=== PATIENT | female | born 2000 | race Caucasian/White ===

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

== ENCOUNTER 2020-07-05 13:24 | Observation (INO) | payer OTHER ==
[~2020-07-05] VITALS: Ht 160 cm; Wt 64.5 kg
[~2020-07-05 13:24] MED LIST changes: +BACTRIM DS TAB1 EACH PO; +CEPHALEXIN500 MG PO; +TRAMADOL HCL50 MG PO
--- NOTE | 2020-07-05 21:10 | CONS ---
[facility] [address] [place], [place] [address] Signed DATE OF CONSULTATION: 07/05/2020 CHIEF COMPLAINT: Right lower quadrant abdominal pain. HISTORY OF PRESENT ILLNESS: Pretty is a 20-year-old female, otherwise healthy, who ate a smoothie this morning and then had nausea, vomiting twice. She was experiencing some pain in the right lower quadrant. She had called her grandmother and came to emergency room for evaluation. In the emergency room, she was tender in the right lower quadrant with a white count at 10.1. Beta-hCG is negative. COVID test is almost completed. In the meantime, she did receive a CT scan of abdomen and pelvis and she has a fluid-filled mildly thickened appendix consistent with her appendicitis. Therefore, I was asked to see her general surgeon on-call. In the meantime, she received some IV fluids along with her Rocephin and Flagyl. PAST MEDICAL HISTORY: Headaches. PAST SURGICAL HISTORY: None. SOCIAL HISTORY: Marijuana, but does not smoke otherwise. Alcohol none. Lives with a boyfriend. No children. She drives. She is a ware server at a local restaurant. She prefers the [facility]. She goes to the [facility] for primary care. Her mother is at [phone]. FAMILY HISTORY: Her dad had asthma and there is diabetes on both sides of the family. REVIEW OF SYSTEMS: She had 10 systems reviewed. She told me that she had some bunch of Tylenol when she was younger and she thought it irritated her stomach, but in the meantime, she has had Tylenol seems to do fine. ALLERGIES: Tylenol with stomach irritation. MEDICATIONS: None. PHYSICAL EXAMINATION: Electronically Signed By: LEVI KAY MD 07/05/202109 PATIENT NAME: PRETTY HANKINS CONSULTATION DATE OF : [birth year] REPORT #: [id number] PHYSICIAN: LEVI KAY MD PCP: ISIDORO BUITRAGO MD REPORT IS CONFIDENTIAL AND NOT TO BE RELEASED WITHOUT AUTHORIZATION [facility] [address] [place], [place] [address] Signed VITAL SIGNS: Blood pressure 122/87, heart rate 74, respiratory rate 17, temperature is 97.5. She is 100% on room air. She is 5 feet 3 inches, 72 kg. GENERAL: Pretty is a 20-year-old female appears healthy and at her stated age. Her grandmother is with her currently. She does not appear systemically ill or toxic. LUNGS: Clear to auscultation bilaterally. HEART: Regular rate and rhythm. ABDOMEN: Soft, flat, but she is tender at McBurney's point in the right lower quadrant. LABORATORY DATA: Her white blood count 10.1, hemoglobin 13, neutrophils 72. Electrolytes are unremarkable. LFTs negative. Albumin 4.8. Beta-hCG negative urinalysis negative: COVID pending. RADIOGRAPHIC STUDIES: CT scan of abdomen and pelvis is reviewed both the images and the report and she does have a mildly thickened appendix with fluid concerning obviously for appendicitis. ASSESSMENT AND PLAN: Pretty is a 20-year-old female who presents with early acute appendicitis. I reviewed with Pretty and her grandmother the location of function of the appendix. We have discussed laparoscopic versus open appendectomy. We reviewed the expected intraop and postop course. She does understand the risks including, but not limited to bleeding, infection, scarring, change in contour of the skin, damage to bowel, appendiceal stump leak, postoperative intraabdominal abscess, incisional hernias and other unforeseen comorbidities. She has expressed understanding and would like to proceed with surgery. Levi Kay MD ALB/MODL /[id number] cc: [facility] Levi Kay MD Patient chart Electronically Signed By: LEVI KAY MD 07/05/202109 PATIENT NAME: PRETTY HANKINS CONSULTATION DATE OF : [birth year] REPORT #: [id number] PHYSICIAN: LEVI KAY MD PCP: ISIDORO BUITRAGO MD REPORT IS CONFIDENTIAL AND NOT TO BE RELEASED WITHOUT AUTHORIZATION [facility] [address] [place] [address] Signed Copies: LEVI KAY MD ~ Electronically Signed By: LEVI KAY MD 07/05/202109 PATIENT NAME: PRETTY HANKINS CONSULTATION DATE OF : [birth year] REPORT #: [id number] PHYSICIAN: LEVI KAY MD PCP: ISIDORO BUITRAGO MD REPORT IS CONFIDENTIAL AND NOT TO BE RELEASED WITHOUT AUTHORIZATION
--- NOTE | 2020-07-05 21:11 | NUR ---
07/05/202110 Makenzie Lang PATIENT CONTINUES TO TRY TO REMOVE HER OXYGEN MASK. OXYGEN IS TURNED OFF AND OXYGEN MASK IS REMOVED. ICE PLACED ON ABDOMEN.
--- NOTE | 2020-07-05 21:45 | NUR ---
PT ARRIVES TO FLOOR VIA STRETCHER WITH YOUTH PROBATION OFFICER. PT ABLE TO SCOOT HERSELF OVER TO THE BED SLOWLY. RATES PAIN 10/10. DENIES NASUEA. REPORTS THAT HER THROAT IS SCRATCHY, REQUESTS WATER. ENCOURAGED PT TO TAKE SLOW SIPS OF WATER, TO NOT OVER DO IT. PT TAKING LARGE DRINKS OF WATER. PT'S GRANDMA AT BEDSIDE ATTEMPTING TO TALK TO PT. PT DROWSY. ADMISSION PROCESS COMPLETED. PT ORIENTED TO ROOM AND POC. PT STATES UNDERSTANDING. PT PROVIDED WITH WARM BLANKETS, PT SHIVERING AND COLD. PT DENIES FURTHER NEEDS AT THIS TIME. CALL LIGHT IN REACH. PT AGREES TO USE FOR NEEDS.
--- NOTE | 2020-07-05 22:30 | NUR ---
ASSESSMENT COMPLETE. IVF INFUSING PER ORDER. PRN ADMINISTERED FOR 10/10 ABD PAIN. LAP SITES X 3 COVERED WITH GAUZE. SCANT AMOUNT OF SHADOWING NOTED. BOWEL TONES HYPOACTIVE. PT DENIES NAUSEA. FRESH ICE TO ABD. CPOX AND SCD'S IN PLACE. PT DROWSY BUT RESPONDS APPROPRIATELY TO QUESTIONS. CLEAR LIQUIDS PROVIDED. PT ORIENTED TO ROOM AND NURSE CALL LIGHT. NO QUESTIONS OR CONCERNS AT THIS TIME. CALL LIGHT IN REACH.
--- NOTE | 2020-07-05 22:45 | NUR ---
POST OP VITALS OBTAINED. PT REQUESTS TO GET UP AND USE THE BATHROOM. PT EDUCATION PROVIDED REGARDING SPLITING, TRANSFERS AFTER ABD SURGERY. PT DEMOSTRATES KNOWLEDGE. PT BACK TO BED WITH 1 PA. UNSTEADY ON HER FEET. REMINDED PT TO ALWAYS CALL FOR ASSISTANCE, NOT TO GET OUT OF BED WITHOUT HELP. BED ALARM PLACED. WARM BLANKET PROVIDED. PT DENIES FURTHER NEEDS. CALL LIGHT IN REACH.
--- NOTE | 2020-07-05 23:50 | NUR ---
PT DROWSY BUT AWAKENS EASILY. POST OP VITALS OBTAINED. PT DENIES NAUSEA. REPORTS PAIN IS TOLERABLE AT THIS TIME. FRESH ICE TO ABD.
--- NOTE | 2020-07-06 00:52 | NUR ---
PT UTILIZES CALL LIGHT APPROPRIATELY TO USE THE BATHROOM. 1PA TO BATHROOM AND BACK TO BED. PT TOLERATED OK, INCREASED PAIN WITH MOVEMENT. PT REQUESTS WARM BLANKET, PROVIDED. PT STATES "CAN I EAT YET?" DIET EDUCATION PROVIDED, PT PROVIDED WITH LOCO. DENIES FURTHER NEEDS AT THIS TIME, SCROLLING ON HER CELL PHONE. CALL LIGHT IN REACH.
--- NOTE | 2020-07-06 01:14 | NUR ---
PRN ADMINISTERED FOR 9/10 ABD PAIN. PT TAKING PO WELL WITH NO COMPLAINTS OF NAUSEA. PRN MOTRIN PROVIDED WELL.
--- NOTE | 2020-07-06 02:51 | NUR ---
PT RESTING WITH EYES CLOSED. RESPIRATIONS EVEN AND UNLABORED. SpO2 96% ON RA. HR 66.
--- NOTE | 2020-07-06 04:24 | NUR ---
CALL LIGHT ANSWERED. PRN ADMINISTERED WITH JELLO FOR ABD PAIN. PT DENIES NAUSEA. UP TO BR WITH SBA. GAIT STEADY. BACK TO BED, PITA WELL. SCD'S AND CPOX IN PLACE. ASSESSMENT COMPLETE. LAP SITES X 3 WITH SCANT AMOUNT OF SEROSANG DRAINAGE. ABD SOFT AND NON-DISTENDED. BOWEL TONES ACTIVE. NO FURTHER NEEDS.
--- NOTE | 2020-07-06 06:45 | NUR ---
CALL LIGHT ANSWERED. SBA TO BR TO VOID 800 ML CLEAR YELLOW URINE. GAIT STEADY. PT SITTING IN RECLINER AT THIS TIME. FRESH ICE TO ABD. CPOX IN PLACE. IVF INFUSING. CALL LIGHT IN REACH.
--- NOTE | 2020-07-06 07:19 | OR ---
[facility] [address] [place], [place] [address] Signed DATE OF OPERATION: 07/05/2020 SURGEON: Levi Barrera MD PREOPERATIVE DIAGNOSIS: Acute inflamed appendicitis. POSTOPERATIVE DIAGNOSIS: Acute inflamed appendicitis. PROCEDURE: Laparoscopic appendectomy. ESTIMATED BLOOD LOSS: None. INDICATIONS: Pretty is a 20-year-old female, otherwise healthy, who had nausea, vomiting x2 earlier today. She was noting increasing right lower quadrant pain throughout the day. She had her grandmother bring her to the emergency room. She was tender in the right lower quadrant with a white count of 10.1. Beta-hCG and her COVID tests were negative. CT scan showed the appendix was mildly thickened and fluid-filled. I had been asked to see her as a general surgeon on-call in the emergency room. I met with Pretty and her grandmother. We reviewed the above findings. We reviewed the location and function of the appendix. We reviewed laparoscopic versus open appendectomy. We had reviewed the expected intraoperative and postoperative course. We reviewed the risks including, but not limited to bleeding, infection, scarring, change in contour, skin damage, damage to bowel, appendiceal stump leak, postoperative intraabdominal abscess, incisional hernias and other unforeseen comorbidities. She had expressed understanding and wished to proceed. PROCEDURE NOTE: Pretty was taken into our operating room and placed in supine position under general endotracheal tube anesthesia. She was already on preoperative antibiotics along with subcutaneous heparin. SCDs were utilized. We did not use a Fitzgerald catheter since she urinated just prior to going into the operating room. She was then prepped and draped in the usual sterile fashion. All trocars were placed in usual positions under direct visualization of camera without difficulty. The appendix was grasped and elevated in the right upper quadrant. We had taken pictures throughout for photodocumentation. The base of the appendix was cleared with the help of the cautery and divided from the cecum Electronically Signed By: LEVI BARRERA MD 07/06/20 0719 PATIENT NAME: PRETTY HANKINS OPERATIVE REPORT DATE OF : 98 REPORT #: [id number] PHYSICIAN: LEVI BARRERA MD PCP: ISIDORO BUITRAGO MD REPORT IS CONFIDENTIAL AND NOT TO BE RELEASED WITHOUT AUTHORIZATION [facility] [address] [place] [address] Signed with a linear stapler. Hemostasis was excellent. We used a vascular load on the linear stapler to divide the mesoappendix. Again, hemostasis was excellent. The appendix was placed into an EndoCatch bag and taken out through the right subcostal trocar site. We used our laparoscopic suturing device to pass 0 Vicryl suture on either side of the fascia of the subxiphoid trocar site. We then tied this down to close the fascia primarily. After this, the gas was allowed to escape and all the remaining trocars were removed. We used interrupted 0-Vicryl suture to close the fascia of the supraumbilical trocar site. Local anesthetic was injected into all 3 trocar sites. Each trocar site was irrigated and suctioned out until clear. The skin and dermis of each trocar site were closed with interrupted 3-0 subcuticular Monocryl sutures. Dry gauze and tape were applied to all incisions. Pretty was awakened from her anesthesia, extubated in the OR, and taken to recovery room in stable condition. Levi Barrera MD ALB/MODL /[id number] cc: patient chart MD Ryan Rice MD Copies: LEVI BARRERA MD, JAMES MD ~ Electronically Signed By: LEVI BARRERA MD 07/06/20 0719 PATIENT NAME: PRETTY HANKINS OPERATIVE REPORT DATE OF : [birth year] REPORT #: [id number] PHYSICIAN: LEVI BARRERA MD PCP: ISIDORO BUITRAGO MD REPORT IS CONFIDENTIAL AND NOT TO BE RELEASED WITHOUT AUTHORIZATION
--- NOTE | 2020-07-06 07:42 | NUR ---
SHIFT REPORT FROM NURSE BAGLEY. PT UP IN RECLINER. PT REPORTS HUNGER BUT NO GAS THUS FAR. CALL LIGHT WITHIN REACH
--- NOTE | 2020-07-06 08:15 | NUR ---
PATIENT SLEEPING. WILL RETURN LATER.
--- NOTE | 2020-07-06 09:16 | NUR ---
pt had eaten entire breakfast and requests a shower. pt reports 8/10 pain in right abdomen. requests prn pain meds. prn oxycodone x2 administered. pt readied for shower. encouraged to use call light.
--- NOTE | 2020-07-06 10:42 | NUR ---
ASSESSMENT COMPLETE. PT RATES PAIN 7/10 AFTER PRN PAIN MEDS. VSS. UMBILICAL LAP SITE DRAINING SCANT SANGUINOUS; PLACED GAUZE WITH SILK TAPE. PT HAS GOOD BOWEL TONES; REPORTS PASSING GAS, NO BM. NEW IV PLACED IN L AC; IVF INFUSING. CALL LIGHT WITHIN REACH
[2020-07-06] MEDS ORDERED: VITAMIN C500 M1 PO (11:05)
[2020-07-06] MEDS ORDERED: VITAMIN E100 UNI3 PO (11:06)
[2020-07-06] MEDS ORDERED: VITAMIN D325 MCG PO (11:06)
[2020-07-06] MEDS ORDERED: COLLAGEN PLUS1 EACH PO (11:07)
--- NOTE | 2020-07-06 11:14 | NUR ---
MED REC COMPLETE
--- NOTE | 2020-07-06 13:15 | NUR ---
PATIENT IN BATHROOM. SPOKE WITH STAFF WHO STATES NO KNOWN BARRIERS TO DISCHARGE HOME. WILL RETURN IF ISSUES ARISE BEFORE DISCHARGE.
--- NOTE | 2020-07-06 13:22 | NUR ---
PT ALERT, ORIENTED AND SITTING IN CHAIR. PT IS PLEASANT, ASKS QUESTIONS ABOUT HER SURGERY AND HOW TO HELP WITH RECOVERY. WILL PASS ALONG TO BLENDING TANK HELPER TO ANSWER. THIS IS PT'S FIRST SURGERY, GAVE BLESSING. WILL FOLLOW NEEDED
[2020-07-06] MEDS ORDERED: OXYCODONE HCL10 MG PO (14:39)
--- NOTE | 2020-07-06 15:30 | NUR ---
CHECKED IN ON PT. PT SLEEPING IN RECLINER; EVEN UNLABORED BREATHING. NO SIGNS OF DISTRESS
--- NOTE | 2020-07-06 15:55 | NUR ---
PT UP TO WALK HALLS WITH OCLLEEN BALDWIN. PT MADE 2 LAPS OF MED SURG FLOOR WITHOUT PROBLEMS. PT RETURNED TO ROOM.
--- NOTE | 2020-07-06 17:17 | NUR ---
pt was released for discharge by dr casarez. pt wheeled to the front via wheelchair where her grandmother picked her up and this nurse helped pt into vehicle at 1652.
--- NOTE | 2020-07-08 11:43 | PATH ---
[facility] [address] [facility] [place] [place] [address] Signed SPECIMEN(S): A APPENDIX SPECIMEN SOURCE: A. APPENDIX CLINICAL HISTORY: Appendicitis. FINAL PATHOLOGIC DIAGNOSIS: Appendix, appendectomy: - Acute appendicitis. NAL:cml:C2NR MICROSCOPIC EXAMINATION: Histologic sections of all submitted blocks are examined by light microscopy. These findings, together with the gross examination, support the pathologic diagnosis. GROSS DESCRIPTION: The specimen, labeled "MF, appendix," is received in formalin and consists of Specimen: Appendix with mesoappendix. Dimensions: A 8.1 cm long, 1.0 cm in diameter appendix with attached mesoappendix up to 3.1 cm wide. Serosa: Apple, smooth, glistening with focal areas of schuster exudate. Perforation: Not grossly identified. Inking: Staple line is inked black. Mucosa: Apple to dark brown. Fecalith: Not grossly identified. Additional: None. Legal Director sections are submitted in cassette (A1). AI (under the direct supervision of a pathologist) The Gross Description was prepared using a voice recognition system. The report was reviewed for accuracy; however, sound-alike word errors, addition and/or deletions may occur. If there is any question about this report, please contact Client Services. PERFORMING LABORATORY: The technical component was performed by [facility], [address] [place] [id number] (Enlisted Aircrew/Aerial Observer/Gunner: Vida Hutchison MD; CLIA# [id number]).Professional interpretation [facility], [address] [facility]. 107, PATIENT NAME: FLAKO HANKINS PATHOLOGY DATE OF : 98 REPORT #: [id number] PHYSICIAN: KOREY PATHOLOGY PCP: ISIDORO BUITRAGO MD REPORT IS CONFIDENTIAL AND NOT TO BE RELEASED WITHOUT AUTHORIZATION [facility] [address] [facility] [place] [address] Signed [place] [id number] (CLIA# [id number]). Diagnostician: Jody Chang MD Pathologist Electronically Signed 07/08/2020 Copies: ~ PATIENT NAME: FLAKO HANKINS PATHOLOGY DATE OF : [birth year] REPORT #: [id number] PHYSICIAN: KOREY PATHOLOGY PCP: ISIDORO BUITRAGO MD REPORT IS CONFIDENTIAL AND NOT TO BE RELEASED WITHOUT AUTHORIZATION
== END 2020-07-06 16:38 | disposition home or self-care (01) ==
LOC: ED 13:24 → MS 13:25
PROVIDERS: ADMIT Colon & Rectal Surgery; ATTEND Colon & Rectal Surgery
PROC: 0DTJ4ZZ Resection of Appendix, Percutaneous Endoscopic Approach (ICD-10-PCS; principal; 2020-07-05 19:58)
DX: K35.80 Unspecified acute appendicitis (principal); K21.9 Gastro-esophageal reflux disease without esophagitis; Z88.8 Allergy status to other drugs, medicaments and biological substances; Z20.828 Contact with and (suspected) exposure to other viral communicable diseases
CPT/HCPCS: 00840; 74177; 80053; 81001; 83690; 83735; 84703; 85025; 88304; 99285-25; C9803; G0378; J0696; J1100; J1170; J1644; J1885; J2250; J2405; J2550; J2704; J2765; J3010; J7030; J7121; Q9967; U0003

== ENCOUNTER 2020-07-08 14:24 | Emergency (ER) | payer OTHER ==
[~2020-07-08] VITALS: Ht 160 cm; Wt 64.4 kg
[~2020-07-08 14:24] MED LIST changes: +COLLAGEN PLUS1 EACH PO; +OXYCODONE HCL10 MG PO; +VITAMIN C500 M1 PO; +VITAMIN D325 MCG PO; +VITAMIN E100 UNI3 PO
--- OUTSIDE RECORDS SUMMARY | 2020-07-08 15:50 | XMS ---
PreManage Notification: FLAKO HANKINS Security Adjudication Specialist Events No recent Security Events currently on file CRITERIA MET - [facility] - 2 Visits in 30 Days CARE PROVIDERS There are no care providers on record at this time. Brian has no Care Guidelines for this patient. Ayanna VISIT COUNT (12 MO.) 2 [facility] T[facility] 2 NOTE: Visits indicate total known visits. ED/[facility] VISIT TRACKING (12 MO.) 07/08/2020 14:24 [facility] [place] [facility]: Emergency COMPLAINT: - SYNCOPE, CONFUSSION, POST OP PROBLEM 07/05/2020 13:24 [facility] [place] TYPE: Emergency COMPLAINT: - ABD PAIN INPATIENT VISIT TRACKING (12 MO.) 07/05/2020 13:25 [facility] [place] TYPE: Observation COMPLAINT: - APPENDICITIS [email or web address]
--- NOTE | 2020-07-09 09:51 | EKG ---
[facility] [address] [facility] [place], [place] [address] Signed Normal sinus rhythm Normal ECG No previous ECGs available Confirmed by PARAM JACOB MD ([id number]) on 07/09/2020 9:51:05 AM Electronically Signed By: PARAM JACOB MD 07/09/20 0951 PATIENT NAME: FLAKO HANKINS Electrocardiogram DATE OF : 98 PHYSICIAN: PARAM JACOB MD REPORT #: [id number] REPORT IS CONFIDENTIAL AND NOT TO BE RELEASED WITHOUT AUTHORIZATION
== END 2020-07-08 17:20 | disposition home or self-care (01) ==
LOC: ED 14:24
DX: R55 Syncope and collapse (principal); Z79.899 Other long term (current) drug therapy; Z88.8 Allergy status to other drugs, medicaments and biological substances
CPT/HCPCS: 80048; 85025; 93005; 93010; 99284-25; J7030

== ENCOUNTER 2022-02-25 07:00 | Day surgery (SDC) | payer OTHER ==
[~2022-02-25] VITALS: Ht 160 cm; Wt 79.5 kg
[~2022-02-25 07:00] MED LIST changes: +BUSPIRONE HCL5 MG PO; +DICYCLOMINE HCL20 MG PO; +HYDROXYZINE HCL25 MG PO; +PRENA1 CHEW TA1.4 MG PO
--- NOTE | 2022-02-25 08:51 | NUR ---
02/25/22 0851 Shaunna Gaytan 0853 PATIENT ARRIVES TO PACU UNRESPONSIVE TO VERBAL STIMULI. ORAL AIRWAY IN PLACE. RESP EVEN AND UNLABORED, MASK AT 6 LITERS.
--- NOTE | 2022-02-26 08:32 | OR ---
[facility] [address] [place], [place] [address] Signed DATE OF OPERATION: 02/25/2022 SURGEON: Levi Barrera MD PREOPERATIVE DIAGNOSIS: Irritable bowel syndrome with constipation. POSTOPERATIVE DIAGNOSIS: Unremarkable colonoscopy. PROCEDURE: Colonoscopy without biopsy. ESTIMATED BLOOD LOSS: None. INDICATIONS: Karlos is a 21-year-old female who was asked to see me for a colonoscopy. She describes irritable bowel syndrome with constipation. She said the stool was not particularly firm, but for some reason it does not necessarily come out. She had no injury to the perineum or her back. She has never had children. She had been to her primary care provider. There is no family history of colon cancer or polyps. There is no family history of inflammatory bowel disease. In the office, I gave her a pamphlet on colonoscopy and we reviewed that together. She understands the nature of that test. There is risk including, but not limited to gas bloating, crampy abdominal pain, bleeding, perforation requiring surgery, and missed diagnosis. We also discussed the need for monitored anesthesia care given her daily use of marijuana. She had expressed understanding and wished to proceed. PROCEDURE NOTE: Karlos was taken into our endoscopy suite and placed in the left lateral decubitus position. Indeed, she was given large amounts of propofol per our nurse job printer. A digital rectal exam was performed and this was unremarkable. There were no external hemorrhoids. She has excellent perianal hygiene. No external hemorrhoids. She had good sphincter tone. There were no masses. The adult colonoscope was introduced and advanced quite readily around into the cecum under direct visualization of camera without difficulty. Her prep was quite excellent. We could easily see the appendiceal orifice and the ileocecal valve. The scope was slowly withdrawn. We took several pictures throughout for photodocumentation. There were no polyps. No diverticulosis. No inflammatory changes. The scope had been retroflexed in the rectum and there was no Electronically Signed By: LEVI BARRERA MD 02/26/22 0832 PATIENT NAME: FLAKO HANKINS OPERATIVE REPORT DATE OF : [birth year] REPORT #: [id number] PHYSICIAN: LEVI BARRERA MD PCP: LEA KOLB NP REPORT IS CONFIDENTIAL AND NOT TO BE RELEASED WITHOUT AUTHORIZATION [address] [address] Signed additional pathology noted above the anal canal. After this, the gas was suctioned out. The colonoscope was removed. Karlos tolerated the procedure quite well. RECOMMENDATIONS: Karlos can follow up in my office as needed. MD JAMES Rice/MATTHEWL /[id number] cc: REJI Rowley MD Copies: LEVI BARRERA MD ~ Electronically Signed By: LEVI BARRERA MD 02/26/22 0832 PATIENT NAME: FLAKO HANKINS OPERATIVE REPORT DATE OF : [birth year] REPORT #: [id number] PHYSICIAN: LEVI BARRERA MD PCP: LEA KOLB NP REPORT IS CONFIDENTIAL AND NOT TO BE RELEASED WITHOUT AUTHORIZATION
== END 2022-02-25 09:20 | disposition home or self-care (01) ==
LOC: OPS 07:00 → DS 07:00 → OPS 08:15 → DS 11:45
PROVIDERS: ATTEND Colon & Rectal Surgery
PROC: 0DJD8ZZ Inspection of Lower Intestinal Tract, Via Natural or Artificial Opening Endoscopic (ICD-10-PCS; principal; 2022-02-25 08:15)
DX: K58.1 Irritable bowel syndrome with constipation (principal); K21.9 Gastro-esophageal reflux disease without esophagitis; Z90.49 Acquired absence of other specified parts of digestive tract; F12.10 Cannabis abuse, uncomplicated
CPT/HCPCS: J2704; J7121

== ENCOUNTER 2022-10-21 18:53 | Emergency (ER) | payer OTHER ==
[~2022-10-21] VITALS: Ht 160 cm; Wt 74.8 kg
== END 2022-10-21 20:55 | disposition home or self-care (01) ==
LOC: ED 18:53
DX: S16.1XXA Strain of muscle, fascia and tendon at neck level, initial encounter (principal); F10.129 Alcohol abuse with intoxication, unspecified; Y90.8 Blood alcohol level of 240 mg/100 ml or more; Z79.899 Other long term (current) drug therapy; V89.2XXA Person injured in unspecified motor-vehicle accident, traffic, initial encounter; Y92.411 Interstate highway as the place of occurrence of the external cause
CPT/HCPCS: 36415; 70450; 71260; 72125; 74177; 80053; 83605; 84703; 85025; 86850; 86900; 86901; 87502; 96375; 99284-25; A9270; G0480; J2270; J2405; J7121; Q9967; U0003

== ENCOUNTER 2023-08-21 14:15 | Emergency (ER) | payer OTHER ==
[~2023-08-21] VITALS: Ht 160 cm; Wt 74.2 kg
[2023-08-21] MEDS ORDERED: BUPROPION HCL100 MG PO (15:23)
[2023-08-21 15:26] LABS: BASOPHILS 0.5 % (0-2); EOSINOPHILS 1.9 % (0-6); HEMOGLOBIN 13.3 g/dL (12.0-18.0); LYMPHOCYTES 20.4 % (24-44); MCH 28.9 (27-36); MCHC 33.2 g/dl (30-36); MCV 87.1 fl (81-99); MONOCYTES 9.8 % (0-12); NEUTROPHILS 67.4 % (39-80); PLATELET COUNT 223 K/uL (140-440); RBC 4.59 M/ul (4.3-5.7); RDW 13.8 (10.5-15.0)
[2023-08-21 16:09] LABS: ABO O; ANTIBODY SCREEN NEGATIVE; RH POSITIVE
[2023-08-21 17:11] LABS: BILIRUBIN, URINE NEGATIVE (negative); BLOOD/HGB, URINE TRACE-I (Negative); KETONE, URINE NEGATIVE (Negative); LEUK ESTERASE, URINE NEGATIVE (negative); NITRITE, URINE NEGATIVE (negative); PH, URINE 6.5 (5-7)
[2023-08-21 17:44] LABS: BACTERIA, URINE RARE /hpf (negative); CASTS, URINE NONE SEEN \\lpf; COLLECTION TYPE, URINE CLEAN CATCH; CRYSTALS, URINE NONE SEEN (0-1+); EPITHELIAL CELLS, URINE SQUAMOUS 1+ /lpf (0-1+); REFLEX CULTURE, URINE No (No)
[2023-08-21 17:55] VITALS: BP 109/84
== END 2023-08-21 17:55 | disposition home or self-care (01) ==
LOC: ED 14:15
PROVIDERS: Emergency Medicine
DX: O20.0 Threatened abortion (principal); Z3A.01 Less than 8 weeks gestation of pregnancy; Z88.6 Allergy status to analgesic agent; Z79.899 Other long term (current) drug therapy
CPT/HCPCS: 36415; 76801; 76817; 81001; 84702; 85025; 86850; 86900; 86901; 99284-25

== ENCOUNTER 2024-04-16 00:01 | Inpatient (IN) | payer BC, OTHER ==
[~2024-04-16 00:01] MED LIST changes: +BUPROPION HCL100 MG PO
[2024-04-16] MEDS ORDERED: CALCIUM CARBONATE 500 MG CHEW PO PRN (00:30)
[2024-04-16] MEDS ORDERED: LACTATED RINGER'S 1,000 ML IV PRN (00:30)
[2024-04-16] MEDS ORDERED: miSOPROStoL 25 MCG TAB PV SCH (00:30)
[2024-04-16] MEDS ORDERED: MAGNESIUM HYDROXIDE/AL HYDROX 30 ML CUP PO PRN (00:30)
[2024-04-16] MEDS ORDERED: OXYTOCIN/DEXTROSE 5% 20 UNITS/100 ML BAG IV SCH (00:30)
[2024-04-16 00:45] LABS: HEMATOCRIT 35.8 % (35.0-50.0); MCH 27.2 (27-36); MCHC 33.4 g/dl (30-36); MCV 81.4 fl (81-99); RBC 4.39 M/ul (4.3-5.7); RDW 14.9 (10.5-15.0)
[2024-04-16 01:16] LABS: ABO O; RH POSITIVE
[2024-04-16 01:17] LABS: ANTIBODY SCREEN NEGATIVE
[2024-04-16 01:21] LABS: AMPHETAMINES, URINE NEGATIVE (NEGATIVE); BARBITURATES, URINE NEGATIVE (NEGATIVE); BENZODIAZEPINE, URINE NEGATIVE (NEGATIVE); BUPRENORPHINE, URINE NEGATIVE (NEGATIVE); CANNABINOID, URINE NEGATIVE (NEGATIVE); COCAINE, URINE NEGATIVE (NEGATIVE); ECSTASY, URINE NEGATIVE (NEGATIVE); FENTANYL, URINE NEGATIVE (NEGATIVE); METHADONE, URINE NEGATIVE (NEGATIVE); OPIATES, URINE NEGATIVE (NEGATIVE); OXYCODONE, URINE NEGATIVE (NEGATIVE); PHENCYCLIDINE, URINE NEGATIVE (NEGATIVE)
[2024-04-16] MEDS ORDERED: ROPIVACAINE 0.2% 200 ML BAG ONE (10:58)
[2024-04-16] MEDS ORDERED: LACTATED RINGER'S 500 ML IV PRN (11:30)
[2024-04-16] MEDS ORDERED: ROPIVACAINE 0.2% 200 ML BAG EPIDURAL SCH (11:30)
[2024-04-16] MEDS ORDERED: LACTATED RINGER'S 2,000 ML IV ONE (11:30)
[2024-04-16] MEDS ORDERED: ePHEDrine sulfate 5 MG/ML SYRINGE IV PRN (11:30)
[2024-04-16] MEDS ORDERED: ePHEDrine KIT FOR FBC IV ONE (12:38)
[2024-04-16] MEDS ORDERED: OXYTOCIN/0.9 % SODIUM CHLORIDE 500 ML IV SCH (14:00)
--- NOTE | 2024-04-16 18:17 | PR ---
[facility] [address] [place], [place] [address] Signed Progress Notes IP Datetime Report Generated by CP[employer] PROGRESS NOTES: [id number] Impression: Normal Progression of Labor; Reassuring Heart Rate Procedures: Intrauterine Pressure Catheter; Sterile Vag Exam Plan: Continue Present Management; Augmentation Informed Consent Obtain: Vaginal Delivery VITAL SIGNS: [id number] Vital Signs: Reviewed; Within Normal Limits EXAM: [id number] Dilatation: 5.0 Effacement: 75 Station: -3 Contractions: q 1-3 min MEMBRANES: [id number] Amniotic Fluid Color: Clear Comments: Pt seen and examined. Doing well. Comfortable w/ epidural. Cervix unchanged on pitocin. Recommended IUPC which was easily placed after verbal consent obtained. Suspect inadequate contractions. Continue pitocin per protocol FETUS A: [id number] FHR Baseline: 120 Variability: Moderate 6-25bpm Accelerations: 15X15 Decelerations: None FHR Category: Category I Presentation: Vertex Comments on Fetus A: No evidence of metabolic acidosis FETUS B: [id number] Signing Physician: Mikie Rice DO Copies: ~ *Electronically Signed* 04/16/24 6176 MIKIE RICE (ISAC) DO PATIENT NAME: FLAKO HANKINS PROGRESS NOTE DATE OF : [birth year] PHYSICIAN: MIKIE RICE (JD) DO RPT #: [id number] REPORT IS CONFIDENTIAL AND NOT TO BE RELEASED WITHOUT AUTHORIZATION
--- NOTE | 2024-04-17 00:54 | PR ---
[facility] [address] [place], [place] [address] Signed Progress Notes IP Datetime Report Generated by CPN: 04/17/2024 00:54 PROGRESS NOTES: [id number] Impression: Reassuring Heart Rate Procedures: Sterile Vag Exam Plan: Continue Present Management; Augmentation Informed Consent Obtain: Vaginal Delivery; Section Delivery VITAL SIGNS: [id number] Vital Signs: Reviewed; Within Normal Limits EXAM: [id number] Dilatation: 5.0 Effacement: 80 Station: -2 Contractions: Inadequate MEMBRANES: [id number] Amniotic Fluid Color: Clear Comments: Pt seen and examined. Doing well. Contractions inadequate despite increasing pitocin. Cat 1 tracing and pt doing well. Discussed 3 P's of labor; passage, passenger, and dolan. Discussed anticipated weight (7#14oz), position (FIGUEROA), adequate pelvis, and inadequate contractions. Pitocin at 18. Discussed reassuring status w/ no evidence of intraamniotic infection. Recommended continued trial of labor and if unchanged at _ 6am would recommend C/S. Pt understands and agrees. FETUS A: [id number] FHR Baseline: 120 Variability: Moderate 6-25bpm Accelerations: 15X15 Decelerations: None FHR Category: Category I Presentation: Vertex Comments on Fetus A: No evidence of metabolic acidosis FETUS B: [id number] Signing Physician: Mikie Johnson DO Copies: ~ *Electronically Signed* 04/17/24 0054 MIKIE JOHNSON (ISAC) DO PATIENT NAME: FLAKO HANKINS PROGRESS NOTE DATE OF : [birth year] PHYSICIAN: MIKIE JOHNSON (JD) DO RPT #: [id number] REPORT IS CONFIDENTIAL AND NOT TO BE RELEASED WITHOUT AUTHORIZATION
[2024-04-17] MEDS ORDERED: Ropivacaine HCl 0.5% 30 ML VIAL ONE ×2 (01:04→07:43)
[2024-04-17] MEDS ORDERED: dexmedeTOMIDine HCl 200 MCG/2 ML VIAL ONE (01:04)
[2024-04-17] MEDS ORDERED: ePHEDrine KIT FOR FBC IV ONE (03:17)
[2024-04-17] MEDS ORDERED: AZITHROMYCIN/DEXTROSE 500 MG/250 ML BAG IV STA (06:11)
[2024-04-17] MEDS ORDERED: SOD+POT BICARB/CITRIC ACID 2 EA TABLET.EFF PO ONE (06:15)
[2024-04-17] MEDS ORDERED: CEFAZOLIN SODIUM 2 GM/20 ML SYR IV SCH (07:00)
--- NOTE | 2024-04-17 07:18 | PR ---
[facility] [address], [place] [address] Signed Progress Notes IP Datetime Report Generated by CPN: 04/17/2024 07:18 PROGRESS NOTES: [id number] Impression: Arrest of Dilatation/Descent; Reassuring Heart Rate Procedures: Sterile Vag Exam Plan: Deliver- Section Informed Consent Obtain: Section Delivery; Risks, Benefits and Alternatives Discussed VITAL SIGNS: [id number] Vital Signs: Reviewed; Within Normal Limits EXAM: [id number] Dilatation: 5.0 Effacement: 80 Station: -2 Contractions: Irregular MEMBRANES: [id number] Amniotic Fluid Color: Clear Comments: Pt seen and examined. Doing well. Comfortable w/ epidural. Reviewed no cervical change despite pitocin and maternal repositioning over many hours. Significant caput noted. No evidence of intra-amniotic infection. Recommend primary delivery. Reviewed risks / benefits / alternatives and pt strongly agrees. No additional questions or concerns. Will coordinate w/ OR FETUS A: [id number] FHR Baseline: 120 Variability: Moderate 6-25bpm Accelerations: 15X15 Decelerations: None FHR Category: Category I Presentation: Vertex Comments on Fetus A: No evidence of metabolic acidosis FETUS B: [id number] Signing Physician: Mikie Rice DO Copies: ~ *Electronically Signed* 04/17/24 07 MIKIE RICE (ISAC) DO PATIENT NAME: FLAKO HANKINS PROGRESS NOTE DATE OF : 98 PHYSICIAN: MIKIE RICE) DO RPT #: [id number] REPORT IS CONFIDENTIAL AND NOT TO BE RELEASED WITHOUT AUTHORIZATION
[2024-04-17] MEDS ORDERED: MORPHINE SULFATE 1 MG/ML VIAL ONE (07:43)
[2024-04-17] MEDS ORDERED: SODIUM CHLORIDE 0.9% 40 ML IV ONE (07:43)
[2024-04-17] MEDS ORDERED: ondansetron HCL 4 MG/2 ML VIAL IV PRN ×4 (07:45→10:45)
[2024-04-17] MEDS ORDERED: ePHEDrine sulfate 50 MG/ML AMP ONE (08:23)
[2024-04-17] MEDS ORDERED: LIDOCAINE 2% W/ EPI 1:200,000 20 ML SDV ONE (08:23)
[2024-04-17] MEDS ORDERED: ondansetron HCL 4 MG/2 ML VIAL ONE (08:23)
[2024-04-17] MEDS ORDERED: OXYTOCIN 10 UNITS/ML VIAL ONE (08:23)
[2024-04-17] MEDS ORDERED: BUPIVACAINE 0.75% IN DEXTROSE 2 ML AMP ONE (08:39)
[2024-04-17] MEDS ORDERED: LIDOCAINE HCL 2% 5 ML SDV ONE (08:39)
[2024-04-17] MEDS ORDERED: LACTATED RINGER'S 1,000 ML IV ONE ×3 (08:55)
[2024-04-17] MEDS ORDERED: TRANEXAMIC ACID 1,000 MG/10 ML AMP ONE (09:06)
[2024-04-17] MEDS ORDERED: METOCLOPRAMIDE HCL 10 MG/2 ML SDV ONE (09:08)
[2024-04-17] MEDS ORDERED: DEXAMETHASONE SOD PHOS 4 MG/ML VIAL ONE (09:08)
[2024-04-17] MEDS ORDERED: FAMOTIDINE 20 MG/ 2 ML VIAL ONE (09:09)
[2024-04-17] MEDS ORDERED: droPERidol 5 MG/2 ML VIAL ONE (09:20)
[2024-04-17] MEDS ORDERED: LACTATED RINGER'S 1,000 ML IV SCH (10:08)
[2024-04-17] MEDS ORDERED: PROMETHAZINE HCL 25 MG SUPP PR PRN (10:15)
[2024-04-17] MEDS ORDERED: METOCLOPRAMIDE HCL 10 MG/2 ML SDV IV PRN ×3 (10:15→10:45)
[2024-04-17] MEDS ORDERED: OXYTOCIN/0.9 % SODIUM CHLORIDE 500 ML IV SCH (10:15)
[2024-04-17] MEDS ORDERED: PROMETHAZINE HCL 25 MG TAB PO PRN (10:15)
[2024-04-17] MEDS ORDERED: bisacodyL 10 MG SUPP PR PRN (10:15)
[2024-04-17] MEDS ORDERED: HYDROCODONE/ACETA 5/325 TAB PO PRN (10:15)
[2024-04-17] MEDS ORDERED: PROCHLORPERAZINE EDISYLATE 10 MG/2 ML VIAL IV PRN ×3 (10:15→10:45)
[2024-04-17] MEDS ORDERED: OXYCODONE HCL 5 MG TAB PO PRN (10:15)
[2024-04-17] MEDS ORDERED: OXYCODONE/APAP 5/325 TAB PO PRN (10:15)
[2024-04-17 10:45] VITALS: BP 128/74
[2024-04-17] MEDS ORDERED: fentaNYL citrate 50 MCG/ML SDV IV PRN (10:45)
[2024-04-17] MEDS ORDERED: IBLOOD GLUCOSE TEST STRIP 1 EA TEST VI PRN (10:45)
[2024-04-17] MEDS ORDERED: diphenhydrAMINE HCL 50 MG/ML VIAL IV PRN (10:45)
[2024-04-17] MEDS ORDERED: MORPHINE SULFATE 4 MG/ML VIAL IV PRN (10:45)
[2024-04-17] MEDS ORDERED: diphenhydrAMINE HCL 25 MG CAP PO PRN (10:45)
[2024-04-17] MEDS ORDERED: KETOROLAC TROMETHAMINE 30 MG/ML VIAL IV PRN (10:45)
[2024-04-17] MEDS ORDERED: MORPHINE SULFATE 10 MG/ML VIAL IV PRN (10:45)
[2024-04-17] MEDS ORDERED: droPERidol 5 MG/2 ML VIAL IV PRN (10:45)
[2024-04-17] MEDS ORDERED: NALOXONE HCL 0.4 MG SYR IV PRN ×2 (10:45)
--- NOTE | 2024-04-17 10:54 | NUR ---
04/17/[address] [place] 8496- PT ARRIVES TO ROOM 102 IN FBC, SUPINE POSITION, AWAKE BUT DROWSY. PT DENIES PAIN AND NAUSEA. ALL MONITORS APPLIED. SPINAL LEVEL AND FUNDAL CHECK. PT REPORTS FEELING LIKE SHE CAN'T KEEP HER EYES OPEN, REASSURED PT DUE TO MEDICATION. GONZALEZ CATHETER IN PLACE DRAINING CLEAR YELLOW URINE. LR WITH 30 UNITS OF PITOCIN INFUSING TO 20 G IV TO RFA. NO SIGNS OF DISTRESS. 1000- LILIAN RN AT BEDSIDE TO ASSIST WITH BREAST FEEDING, PT IS RESTING. BABY LATCHED TO RIGHT BREAST, SIGNIFICANT OTHER AT BEDSIDE. 1010- PT CONTINUES TO REST, NO SIGNS OF DISTRESS. PT CONTINUES TO BREAST FEED. LR CONTINUES TO INFUSE. BED PLUGGED IN. 1015- REPORT TO LILIAN KENNEDY AT BEDSIDE, NO BLEEDING AT THIS TIME. ABD DRESSING CDI. PT CONTINUES TO REST, LR CONTINUES TO INFUSE. SIGNIFICANT OTHER AT BEDSIDE, CARE OF PT TURNED OVER AT THIS TIME.
[2024-04-17] MEDS ORDERED: SIMETHICONE 125 MG TABLET CHEWABLE PO SCH (11:00)
[2024-04-17] MEDS ORDERED: KETOROLAC TROMETHAMINE 30 MG/ML VIAL IV SCH (14:00)
[2024-04-17] MEDS ORDERED: ENOXAPARIN SODIUM 40 MG/0.4 ML SYR SUB-Q SCH (18:00)
[2024-04-17] MEDS ORDERED: SENNOSIDES/DOCUSATE 1 EA TAB PO SCH (21:00)
[2024-04-18] MEDS ORDERED: IBUPROFEN 600 MG TAB PO SCH ×2 (02:00→14:00)
[2024-04-18 05:50] LABS: HEMATOCRIT 26.3 % (35.0-50.0); HEMOGLOBIN 8.6 g/dL (12.0-18.0)
[2024-04-18 05:51] LABS: MCH 26.9 (27-36); MCHC 32.7 g/dl (30-36); MCV 82.1 fl (81-99); PLATELET COUNT 184 K/uL (140-440); RDW 14.7 (10.5-15.0)
[2024-04-18 06:02] LABS: BANDS, MANUAL DIFF 4; EOSINOPHILS, MANUAL DIFF 2; LYMPHOCYTES, MANUAL DIFF 11; MONOCYTES, MANUAL DIFF 4; NEUTROPHILS, MANUAL DIFF 79
[2024-04-18 14:58] LABS: HEMATOCRIT 27.3 % (35.0-50.0); HEMOGLOBIN 8.8 g/dL (12.0-18.0); MCH 26.8 (27-36); MCHC 32.4 g/dl (30-36); MCV 82.9 fl (81-99); PLATELET COUNT 186 K/uL (140-440); RBC 3.29 M/ul (4.3-5.7); RDW 14.8 (10.5-15.0)
[2024-04-18 15:13] LABS: LYMPHOCYTES, MANUAL DIFF 18; MONOCYTES, MANUAL DIFF 1; NEUTROPHILS, MANUAL DIFF 81
--- NOTE | 2024-04-19 08:56 | PR ---
[facility] [address], [place] [address] Signed PP Progress Notes Datetime Report Generated by CPN: 04/19/2024 08:56 SUBJECTIVE: [id number] Pain: Within Normal Limits Nausea/Vomiting: Denies Bowel Movement: Yes Vital Signs: [id number] Vital Signs: Reviewed; Within Normal Limits EXAM: Ongoing Cardiovascular: Normal Respiratory: Normal Abdomen/Uterus: Normal Lochia: Normal Vulva/Perineum: Not Done Breasts: Not Done CVA Tenderness: Normal Extremities: Normal Incision: Normal Progress: Normal Exam Comments: Fundus firm U-2 nontender. Incision healing well w/ shireen in place IMPRESSION/PLAN/PROCEDURES: [id number] Impression: Normal Progression Plan: Discharge Progress Notes: Pt seen and examined. Doing well. Ambulating, voiding, and tolerating full diet. Pain and lochia minimal. . No fevers / chill / malodorous discharge or uterine tenderness. Desires d/c home today. No other concerns. Reviewed d/c instructions and medications. Shireen out in 2-3 days. Undecided on pp contraception. Signing Physician: Mikie Rice DO Copies: ~ *Electronically Signed* 04/19/24 0856 MIKIE RICE (ISAC) DO PATIENT NAME: FLAKO HANKINS PROGRESS NOTE DATE OF : 98 PHYSICIAN: MIKIE RICE) DO RPT #: [id number] REPORT IS CONFIDENTIAL AND NOT TO BE RELEASED WITHOUT AUTHORIZATION
== END 2024-04-19 10:50 | disposition home or self-care (01) | DRG 787 ==
LOC: FBC 00:01 → MS 04-18 17:45 → FBC 04-18 17:48
PROVIDERS: ADMIT Obstetrics & Gynecology; ATTEND Obstetrics & Gynecology
PROC: 10D00Z1 Extraction of Products of Conception, Low, Open Approach (ICD-10-PCS; principal; 2024-04-17 08:50)
DX: O62.1 Secondary uterine inertia (principal); O99.324 Drug use complicating childbirth; O76 Abnormality in fetal heart rate and rhythm complicating labor and delivery; Z3A.39 39 weeks gestation of pregnancy; Z37.0 Single live birth; O99.344 Other mental disorders complicating childbirth; F41.9 Anxiety disorder, unspecified; F12.90 Cannabis use, unspecified, uncomplicated
CPT/HCPCS: 01961; 36415; 76942; 80307; 85007; 85025; 85027; 85060; 86850; 86900; 86901; A9270; J0456; J0690; J1100; J1650; J1790; J1885; J2001; J2274; J2405; J2590; J2765; J2795; J7121

== ENCOUNTER 2024-04-23 19:40 | Emergency (ER) | payer BC, OTHER ==
[~2024-04-23] VITALS: Ht 160 cm; Wt 85.7 kg
[2024-04-23] MEDS ORDERED: FERROUS SULFAT325 M2 PO (20:30)
[2024-04-23] MEDS ORDERED: FLUOXETINE HCL10 MG PO (20:30)
[2024-04-23] MEDS ORDERED: IBUPROFEN800 MG PO (20:31)
[2024-04-23] MEDS ORDERED: HYDROCODON-ACE1 EA10 PO (20:31)
[2024-04-23] MEDS ORDERED: LACTATED RINGER'S 1,000 ML IV ONE (21:00)
[2024-04-23] MEDS ORDERED: ACETAMINOPHEN 500 MG TAB PO ONE (21:00)
[2024-04-23 21:12] LABS: HEMATOCRIT 31.8 % (35.0-50.0); HEMOGLOBIN 10.4 g/dL (12.0-18.0); MCH 26.6 (27-36); MCHC 32.6 g/dl (30-36); MCV 81.5 fl (81-99); PLATELET COUNT 377 K/uL (140-440); RDW 14.8 (10.5-15.0)
[2024-04-23 21:19] LABS: BILIRUBIN, URINE NEGATIVE (negative); BLOOD/HGB, URINE LARGE (Negative); KETONE, URINE NEGATIVE (Negative); LEUK ESTERASE, URINE MODERATE (negative); NITRITE, URINE NEGATIVE (negative); PH, URINE 7.5 (5-7)
[2024-04-23 21:25] LABS: BANDS, MANUAL DIFF 7; EOSINOPHILS, MANUAL DIFF 1; LYMPHOCYTES, MANUAL DIFF 12; MONOCYTES, MANUAL DIFF 7; NEUTROPHILS, MANUAL DIFF 73
[2024-04-23 21:27] LABS: BACTERIA, URINE 1+ /hpf (negative); CASTS, URINE NONE SEEN \\lpf; CRYSTALS, URINE NONE SEEN (0-1+); EPITHELIAL CELLS, URINE SQUAMOUS 1+ /lpf (0-1+); RED BLOOD CELLS, URINE >50 /hpf (0-5); WHITE BLOOD CELLS, URINE >50 /HPF (0-5)
[2024-04-23 21:28] LABS: COLLECTION TYPE, URINE CLEAN CATCH; REFLEX CULTURE, URINE Yes (No)
[2024-04-23 21:30] LABS: ALBUMIN 2.9 g/dL (3.4-5.0); ALBUMIN/GLOBULIN RATIO 0.67 (1.1-2.4); ANION GAP 13.9 (7-21); BILIRUBIN, TOTAL 0.3 ng/dL (0.2-1.0); BUN/CREATININE RATIO 20.27 (6.0-28.6); CALCIUM 9.3 mg/dL (8.5-10.1); CREATININE, SERUM 0.74 mg/dL (0.55-1.02); POTASSIUM 3.9 mmol/L (3.5-5.1); PROTEIN, TOTAL 7.2 g/dL (6.4-8.2)
[2024-04-23] MEDS ORDERED: CEFTRIAXONE/SODIUM CHLORIDE 2 GM/100 ML PIGGYBACK IV ONE (21:30)
[2024-04-23 21:47] LABS: INFLUENZA B NAA NEGATIVE (NEGATIVE); RESPIRATORY SYNCYTIAL VIR NAA NEGATIVE (NEGATIVE)
[2024-04-23 22:10] LABS: LACTIC ACID, BLOOD 0.6 mmol/L (0.4-2.0)
[2024-04-23] MEDS ORDERED: CEPHALEXIN500 MG PO (22:33)
[2024-04-23 22:51] VITALS: BP 121/87
== END 2024-04-23 22:51 | disposition home or self-care (01) ==
LOC: ED 19:40
PROVIDERS: Internal Medicine
DX: O86.20 Urinary tract infection following delivery, unspecified (principal); N39.0 Urinary tract infection, site not specified; O92.79 Other disorders of lactation; Z79.899 Other long term (current) drug therapy; Z11.52 Encounter for screening for COVID-19
CPT/HCPCS: 36415; 80053; 81001; 83605; 85025; 87040; 87088; 87502; 96365; 99283-25; A9270; J0696; J7121; U0002